=== PATIENT | female | born 1945 | race Caucasian/White ===

== ENCOUNTER 2017-10-12 09:09 | Day surgery (SDC) | payer MEDICARE, BC ==
[~2017-10-12] VITALS: Ht 165.1 cm; Wt 68.2 kg
[2017-10-12 09:56] VITALS: BP 191/73
[2017-10-12] MEDS ORDERED: DIPHENHYDRAMINE 50 MG/ML, 1ML IVPush ONE (10:00)
[2017-10-12] MEDS ORDERED: ATOR40TA PO (10:06)
[2017-10-12] MEDS ORDERED: BUME1TAB21 PO (10:06)
[2017-10-12] MEDS ORDERED: FLUT1AER INH (10:06)
[2017-10-12] MEDS ORDERED: SERT50TA PO (10:06)
[2017-10-12] MEDS ORDERED: LEVO100T PO (10:06)
[2017-10-12] MEDS ORDERED: LOSA25TA5 PO (10:06)
[2017-10-12] MEDS ORDERED: CARV6.2512 PO (10:06)
[2017-10-12] MEDS ORDERED: ASPI-496 PO (10:06)
[2017-10-12] MEDS ORDERED: FLUT100B INH (10:06)
[2017-10-12] MEDS ORDERED: DIPHENHYDRAMINE 50 MG/ML, 1ML ONE (10:37)
[2017-10-12] MEDS ORDERED: MIDAZOLAM 1 MG/ML, 2ML ONE (10:48)
[2017-10-12] MEDS ORDERED: FENTANYL PF 100 MCG/2ML ONE (10:48)
[2017-10-12] MEDS ORDERED: LIDOCAINE-MPF 2% ,5ML ONE (10:48)
[2017-10-12] MEDS ORDERED: SODIUM CHLORIDE 0.9% IV PRN (12:00)
[2017-10-12] MEDS ORDERED: ADENOSINE IV PRN (12:00)
[2017-10-12] MEDS ORDERED: hydrALAzine 20 MG/ML, 1ML ONE (13:37)
[2017-10-12] MEDS ORDERED: hydrALAzine 20 MG/ML, 1ML IV ONE (14:00)
[2017-10-12] MEDS ORDERED: SPIR25TA PO (14:43)
[2017-10-12] MEDS ORDERED: LOSA50TA2 PO (14:43)
== END 2017-10-12 16:05 ==
LOC: CACL 09:09
PROVIDERS: ATTEND Internal Medicine Cardiovascular Disease
DX: I27.20 Pulmonary hypertension, unspecified (principal); I10 Essential (primary) hypertension; E78.5 Hyperlipidemia, unspecified; J44.9 Chronic obstructive pulmonary disease, unspecified; F17.211 Nicotine dependence, cigarettes, in remission; Z95.0 Presence of cardiac pacemaker; Z79.82 Long term (current) use of aspirin
CPT/HCPCS: 93451; 93463; 99156; 99157; C1769; C1894; J0360; J1200; J2250; J3010; J3490

== ENCOUNTER → 2017-11-22 | Outpatient (CLI) | payer MEDICARE, BC ==
[~2017-11-22] MED LIST: ASPI-496 PO; ATOR40TA PO; BUME1TAB21 PO; CARV6.2512 PO; FLUT100B INH; FLUT1AER INH; LEVO100T PO; LOSA25TA5 PO; LOSA50TA2 PO; SERT50TA PO; SPIR25TA PO
== END | disposition home or self-care (01) ==
LOC: RAD 12:29
PROVIDERS: ATTEND Internal Medicine Cardiovascular Disease
DX: R06.02 Shortness of breath (principal); Z88.2 Allergy status to sulfonamides
CPT/HCPCS: 78582; A9540; A9558